=== PATIENT | female | born 1935 ===

== ENCOUNTER 2024-04-10 17:03 | Inpatient (IN) | payer MEDICARE, MEDICAID ==
[~2024-04-10] VITALS: Ht 157.4 cm; Wt 68.5 kg
[2024-04-10 17:30] VITALS: BP 126/60
[2024-04-10 17:55] LABS: HEMATOCRIT 36.1 % (37.0-47.0); MEAN CELL VOLUME 86.8 fl (81.0-99.0); MEAN CORPUSCULAR HGB 28.1 pg (27.0-31.0); MEAN CORPUSCULAR HGB CONC 32.4 g/dl (33.0-37.0); MEAN PLATELET VOLUME 8.5 fl (9.6-12.3); PLATELET COUNT AUTOMATED 350 10*3/uL (130-400); RED BLOOD COUNT 4.16 10*6/uL (4.10-5.10); RED CELL DISTRI WIDTH 13.4 % (0-14.5); WHITE BLOOD COUNT 14.5 10*3/uL (4.8-10.8)
[2024-04-10 17:57] LABS: MANUAL DIFF REFLEX YES
[2024-04-10 18:07] LABS: ACT PARTIAL THROMBO TIME 24.5 SECONDS (20.0-32.1)
[2024-04-10 18:11] LABS: ALKALINE PHOSPHATASE 123 U/L (46-116); BUN 22 mg/dl (9-23); CHLORIDE 102 mmol/L (98-107); CPK 912 U/L (34-171); LIPASE 51 U/L (12-53); POTASSIUM 4.3 mmol/L (3.4-5.1); SGPT/ALT 20 U/L (5-49)
[2024-04-10 18:12] LABS: ETHYL ALCOHOL < 3.0 mg/dl (<3)
[2024-04-10 18:15] LABS: ACANTHOCYTES MODERATE; PLATELET SUFFICIENCY NORMAL (NORMAL); TOTAL CELLS COUNTED 100 #CELLS
[2024-04-10] MEDS ORDERED: SODIUM CHLORIDE 0.9% 1,000 ML IV ONE ×4 (18:25→23:10)
[2024-04-10] MEDS ORDERED: SODIUM CHLORIDE 0.9% 1,000 ML IV SCH (18:35)
[2024-04-10 18:59] LABS: BILIRUBIN Negative (Negative); BLOOD 2+ (Negative); CLARITY Cloudy (Clear); COLOR Yellow (Yellow); GLUCOSE Negative (Negative); KETONE Trace (Negative); LEUKO ESTERASE 2+ (Negative); NITRITE Positive (Negative); PH 5.5 (4.5-8.0)
[2024-04-10 19:06] LABS: URINE AMPHETAMINES Negative (1000ng/ml); URINE BARBITURATES Negative (200ng/ml); URINE BENZODIAZEPINES Negative (200ng/ml); URINE CANNABINOIDS (THC) Negative (50ng/ml); URINE COCAINE Negative (300ng/ml); URINE METHADONE Negative (300ng/ml); URINE OPIATES Negative (300ng/ml); URINE PHENCYCLIDINE Negative (25ng/ml)
[2024-04-10 19:08] LABS: BACTERIA 3+; RBC 21-30 rbc/hpf (0-2); WBC 41-50 wbc/hpf (0-5)
[2024-04-10] MEDS ORDERED: ATORVASTATIN CA40 M1 PO (19:28)
[2024-04-10] MEDS ORDERED: DEPAKOTE SPRIN125 MG PO (19:29)
[2024-04-10] MEDS ORDERED: ARTHRITIS PAIN150 G1 T (19:30)
[2024-04-10] MEDS ORDERED: DOCUSATE S50 MG/5 M2 PO (19:31)
[2024-04-10] MEDS ORDERED: EXELON1 EACH T (19:32)
[2024-04-10] MEDS ORDERED: HUMALOG KW200 UNIT/1 SQ (19:33)
[2024-04-10] MEDS ORDERED: HYDROXYZINE HCL50 MG IJ (19:35)
[2024-04-10] MEDS ORDERED: ATARAX,VISTARIL50 MG PO (19:36)
[2024-04-10] MEDS ORDERED: APIDRA SOL100 UNIT/1 SQ (19:38)
[2024-04-10] MEDS ORDERED: LOPERAMIDE HCL2 MG PO (19:39)
[2024-04-10] MEDS ORDERED: LEXAPRO5 M1 PO (19:39)
[2024-04-10] MEDS ORDERED: MELATONIN5 M1 PO (19:40)
[2024-04-10] MEDS ORDERED: METFORMIN HYD1000 MG PO (19:41)
[2024-04-10] MEDS ORDERED: NORVASC2.5 MG PO (19:42)
[2024-04-10] MEDS ORDERED: NAMENDA-5 PO (19:42)
[2024-04-10] MEDS ORDERED: Ondansetron4 MG PO (19:43)
[2024-04-10] MEDS ORDERED: TYLENOL325 M1 PO (19:43)
[2024-04-10] MEDS ORDERED: SENSIPAR30 MG PO (19:44)
[2024-04-10] MEDS ORDERED: VITAMIN D350 MCG PO (19:44)
[2024-04-10] MEDS ORDERED: MAGNESIUM SULFATE 50 ML IV ONE (19:55)
[2024-04-10] MEDS ORDERED: Ceftriaxone Sodium 1 GM/10 ML SYR IV ONE (19:55)
[2024-04-10 20:00] VITALS: BP 126/60
[2024-04-10] MEDS ORDERED: DEXTROSE 10 % IN WATER 250 ML IV PRN (20:45)
[2024-04-10] MEDS ORDERED: Ondansetron Hydrochloride 4 MG/2 ML VIAL IV PRN (20:45)
[2024-04-10] MEDS ORDERED: MORPHINE Sulfate 2 MG/ML SYR IV PRN (20:45)
[2024-04-10] MEDS ORDERED: ACETAMINOPHEN 650 MG SUPP R PRN (20:45)
[2024-04-10] MEDS ORDERED: TEMAZEPAM 15 MG CAP PO PRN (20:45)
[2024-04-10] MEDS ORDERED: Magnesium Hydroxide 30 ML UDC PO PRN (20:45)
[2024-04-10] MEDS ORDERED: BISACODYL 5 MG TAB PO PRN (20:45)
[2024-04-10] MEDS ORDERED: ACETAMINOPHEN 325 MG TAB PO PRN (20:45)
[2024-04-10] MEDS ORDERED: BISACODYL 10 MG SUPP R PRN (20:45)
[2024-04-10] MEDS ORDERED: ATORVASTATIN CALCIUM 40 MG TABLET PO SCH (21:00)
[2024-04-10] MEDS ORDERED: hydrOXYzine hydrochloride 10 MG TAB PO PRN (21:00)
[2024-04-10] MEDS ORDERED: ESCITALOPRAM OXALATE 10 MG TAB PO SCH (21:00)
[2024-04-10] MEDS ORDERED: Rivastigmine Tartrate 4.6 MG/24 HR PATCH T SCH (21:00)
[2024-04-10] MEDS ORDERED: hydrOXYzine 50 MG CAP PO PRN (21:10)
[2024-04-10 21:25] VITALS: BP 136/76
[2024-04-10] MEDS ORDERED: Memantine Hydrochloride 10 MG TAB PO SCH (22:00)
[2024-04-10] MEDS ORDERED: INSULIN LISPRO 1 UNIT/0.01 ML SQ SCH (22:00)
[2024-04-10] MEDS ORDERED: DIVALPROEX SODIUM 125 MG CAP PO SCH (22:00)
[2024-04-11] VITALS: BP 127/77
[2024-04-11 08:18] VITALS: BP 124/47
[2024-04-11] MEDS ORDERED: Cholecalciferol 5,000 IU CAP (125 MCG) PO SCH (10:00)
[2024-04-11] MEDS ORDERED: Enoxaparin Sodium 40 MG/0.4 ML SYR SC SCH (10:00)
[2024-04-11] MEDS ORDERED: amLODIPine besylate 2.5 MG TAB PO SCH (10:00)
[2024-04-11] MEDS ORDERED: HEEL PROTECTOR DEVICE ONE (11:00)
[2024-04-11] MEDS ORDERED: CHAIR CUSHION DEVICE ONE (11:01)
[2024-04-11 12:00] VITALS: BP 127/68
[2024-04-11 16:26] VITALS: BP 149/75
[2024-04-11] MEDS ORDERED: BISACODYL 5 MG TAB PO PRN (17:55)
[2024-04-11] MEDS ORDERED: Ceftriaxone Sodium 1 GM in SYRINGE INFUSION 10 ML IV SCH (18:00)
[2024-04-11] MEDS ORDERED: Polyethylene Glycol 3350 17 GM PACKET PO SCH (18:00)
[2024-04-11 20:00] VITALS: BP 121/50
[2024-04-12] VITALS: BP 132/56
[2024-04-12 08:14] VITALS: BP 136/44
[2024-04-12] MEDS ORDERED: FOAM BANDAGE 1 EACH BANDAGE T ONE (08:55)
[2024-04-12 11:19] LABS: BASO # 0.1 10*3/uL (0.0-0.1); BASO % 0.8 % (0.0-1.0); EOS # 0.4 10*3/uL (0.0-0.4); EOS % 4.7 % (1.0-4.0); HEMATOCRIT 29.9 % (37.0-47.0); MEAN CELL VOLUME 86.9 fl (81.0-99.0); MEAN CORPUSCULAR HGB 28.5 pg (27.0-31.0); MEAN CORPUSCULAR HGB CONC 32.8 g/dl (33.0-37.0); MEAN PLATELET VOLUME 8.5 fl (9.6-12.3); MONO % 11.6 % (3.0-9.0); NEUT # 5.2 10*3/uL (2.3-7.9); NEUT % 59.2 % (47.0-73.0); PLATELET COUNT AUTOMATED 270 10*3/uL (130-400); RED BLOOD COUNT 3.44 10*6/uL (4.10-5.10); RED CELL DISTRI WIDTH 13.2 % (0-14.5); WHITE BLOOD COUNT 8.8 10*3/uL (4.8-10.8)
[2024-04-12 11:58] LABS: ALKALINE PHOSPHATASE 103 U/L (46-116); CHLORIDE 104 mmol/L (98-107); POTASSIUM 3.9 mmol/L (3.4-5.1); SGPT/ALT 13 U/L (5-49); TOTAL PROTEIN 6.1 gm/dL (6.0-8.0)
[2024-04-12 12:00] VITALS: BP 128/76
[2024-04-12 12:11] LABS: BUN 12 mg/dl (9-23)
[2024-04-12] MEDS ORDERED: MAGNESIUM SULFATE 50 ML IV ONE (13:40)
[2024-04-12] MEDS ORDERED: MACROBID100 M1 PO (14:03)
[2024-04-12 16:00] VITALS: BP 134/92
== END 2024-04-12 17:38 | DRG 871 ==
LOC: ED 17:03 → 4E 20:06 → EDHOLD 20:06 → 4E 21:11
PROVIDERS: Internal Medicine; ADMIT Internal Medicine; ATTEND Internal Medicine
DX: A41.9 Sepsis, unspecified organism (principal); G93.41 Metabolic encephalopathy; N30.00 Acute cystitis without hematuria; M62.82 Rhabdomyolysis; E44.1 Mild protein-calorie malnutrition; E87.1 Hypo-osmolality and hyponatremia; F03.B11 Unspecified dementia, moderate, with agitation; N17.9 Acute kidney failure, unspecified; R65.20 Severe sepsis without septic shock; E83.42 Hypomagnesemia; D50.9 Iron deficiency anemia, unspecified; R31.9 Hematuria, unspecified; B96.89 Other specified bacterial agents as the cause of diseases classified elsewhere; E11.65 Type 2 diabetes mellitus with hyperglycemia; I10 Essential (primary) hypertension; Z90.721 Acquired absence of ovaries, unilateral; Z90.49 Acquired absence of other specified parts of digestive tract; Z98.51 Tubal ligation status; Z80.0 Family history of malignant neoplasm of digestive organs; Z81.8 Family history of other mental and behavioral disorders; Z79.4 Long term (current) use of insulin; Z68.27 Body mass index [BMI] 27.0-27.9, adult